=== PATIENT | male | born 1940 | race Caucasian/White ===

== ENCOUNTER → 2017-09-09 05:00 | Outpatient (REF) | payer MEDICARE, OTHER, SELFPAY ==
[2017-09-09 09:37] LABS: Hematocrit 38.9 % (40-54); Hemoglobin 13.3 g/dl (13.0-16.5); Mean Corp Hgb Conc 34.2 g/gl (32-36); Mean Corpuscular Hgb 34.7 pg (27.0-32.0); Mean Corpuscular Volume 101.6 fL (80-94); Mean Platelet Vol. 9.6 fl (6.2-12.0); Platelet Count 158 K/mm3 (150-450); RBC Distribution Width CV 12.2 % (11.6-14.6); RBC Distribution Width SD 45.2 fl (35.1-43.9); Red Blood Count 3.83 M/mm3 (4.6-6.2); White Blood Count 7.2 K/mm3 (4.4-11.0)
[2017-09-09 09:38] LABS: Scan Indicated on CBC? Y/N NO
[2017-09-09 09:54] LABS: Anion Gap 10 (5-15); BUN 22 mg/dL (7-18); BUN/Creat Ratio 27.7 RATIO (10-20); Calcium,Total 8.7 mg/dL (8.5-10.1); Chloride 109 mmol/L (98-107); EST Glomerular Filtration Rate 100 mL/min (>60); Est Glom Filt Rate - Afr Amer 122 mL/min (>60); Glucose 96 mg/dL (70-110); Potassium 3.9 mmol/L (3.5-5.1); Sodium Level 141 mmol/L (136-145)
== END ==
LOC: OLS.WHLTSB 05:00
PROVIDERS: Visit Provider Family Medicine
DX: D64.9 Anemia, unspecified (principal)
CPT/HCPCS: 36415; 80048; 85027

== ENCOUNTER → 2017-12-06 05:00 | Outpatient (REF) | payer MEDICARE, OTHER, SELFPAY ==
[2017-12-06 07:42] LABS: Hematocrit 37.9 % (40-54); Hemoglobin 12.8 g/dl (13.0-16.5); Mean Corp Hgb Conc 33.8 g/gl (32-36); Mean Corpuscular Hgb 34.6 pg (27.0-32.0); Mean Corpuscular Volume 102.4 fL (80-94); Mean Platelet Vol. 9.5 fl (6.2-12.0); Platelet Count 177 K/mm3 (150-450); RBC Distribution Width SD 47.8 fl (35.1-43.9); White Blood Count 6.6 K/mm3 (4.4-11.0)
[2017-12-06 07:46] LABS: Scan Indicated on CBC? Y/N NO
[2017-12-06 07:53] LABS: Anion Gap 7 (5-15); BUN 27 mg/dL (7-18); BUN/Creat Ratio 24.8 RATIO (10-20); Calcium,Total 8.6 mg/dL (8.5-10.1); Chloride 110 mmol/L (98-107); Creatinine, Serum 1.09 mg/dL (0.70-1.30); EST Glomerular Filtration Rate 70 mL/min (>60); Est Glom Filt Rate - Afr Amer 84 mL/min (>60); Glucose 90 mg/dL (74-106); Potassium 3.6 mmol/L (3.5-5.1); Sodium Level 144 mmol/L (136-145)
== END ==
LOC: OLS.WHLTSB 05:00
PROVIDERS: Visit Provider Family Medicine
DX: D64.9 Anemia, unspecified (principal); E87.6 Hypokalemia
CPT/HCPCS: 36415; 80048; 85027

== ENCOUNTER → 2018-05-28 05:00 | Outpatient (REF) | payer SELFPAY ==
[2018-05-28 07:49] LABS: PSA,Total- Diagnostic 0.44 ng/mL (0.0-4.0)
== END ==
LOC: OLS.WHLTSB 05:00
DX: Z85.46 Personal history of malignant neoplasm of prostate (principal)
CPT/HCPCS: 36415; 84153

== ENCOUNTER → 2018-06-09 04:00 | Outpatient (REF) | payer MEDICARE, OTHER, SELFPAY ==
[2018-06-09 09:01] LABS: Hematocrit 39.8 % (40-54); Hemoglobin 13.6 g/dl (13.0-16.5); Mean Corp Hgb Conc 34.2 g/gl (32-36); Mean Corpuscular Hgb 35.4 pg (27.0-32.0); Mean Corpuscular Volume 103.6 fL (80-94); Mean Platelet Vol. 9.5 fl (6.2-12.0); Platelet Count 172 K/mm3 (150-450); RBC Distribution Width CV 12.7 % (11.6-14.6); RBC Distribution Width SD 47.6 fl (35.1-43.9); Red Blood Count 3.84 M/mm3 (4.6-6.2); Scan Indicated on CBC? Y/N NO; White Blood Count 6.1 K/mm3 (4.4-11.0)
[2018-06-09 09:14] LABS: Anion Gap 8 (5-15); BUN 21 mg/dL (7-18); BUN/Creat Ratio 24.5 RATIO (10-20); Calcium,Total 8.8 mg/dL (8.5-10.1); Chloride 111 mmol/L (98-107); Creatinine, Serum 0.86 mg/dL (0.70-1.30); EST Glomerular Filtration Rate 92 mL/min (>60); Est Glom Filt Rate - Afr Amer 111 mL/min (>60); Glucose 95 mg/dL (74-106); PSA,Total- Diagnostic 0.41 ng/mL (0.0-4.0); Potassium 4.2 mmol/L (3.5-5.1); Sodium Level 143 mmol/L (136-145)
== END ==
LOC: OLS.WHLTSB 04:00
PROVIDERS: Visit Provider Family Medicine
DX: D64.9 Anemia, unspecified (principal); Z85.46 Personal history of malignant neoplasm of prostate; E87.6 Hypokalemia
CPT/HCPCS: 36415; 80048; 84153; 85027

== ENCOUNTER → 2018-12-16 07:30 | Outpatient (REF) | payer MEDICARE, OTHER, SELFPAY ==
[2018-12-16 08:12] LABS: Absolute Neutrophil Count 3.4 X10^3/uL (2.0-7.7); Basophil# 0.04 X10^3/uL; Basophil% 0.6 % (0-1); Eosinophil# 0.49 X10^3/uL; Eosinophils% 7.9 % (0-5); Hematocrit 38.7 % (40-54); Hemoglobin 12.8 g/dl (13.0-16.5); Lymphocyte % 29.2 % (19-41); Mean Corp Hgb Conc 33.1 g/gl (32-36); Mean Corpuscular Hgb 33.8 pg (27.0-32.0); Mean Corpuscular Volume 102.1 fL (80-94); Mean Platelet Vol. 9.4 fl (6.2-12.0); Monocyte# 0.38 X10^3/uL; Monocyte% 6.2 % (0-10); Neutrophil # 3.43 X10^3/uL (2.7-7.7); Neutrophil % 55.6 % (47-70); Platelet Count 188 K/mm3 (150-450); RBC Distribution Width CV 13.4 % (11.6-14.6); RBC Distribution Width SD 50.5 fl (35.1-43.9); Red Blood Count 3.79 M/mm3 (4.6-6.2); White Blood Count 6.2 K/mm3 (4.4-11.0)
[2018-12-16 08:33] LABS: Valproic Acid (Depakene) Level 11 ug/mL (50-100)
[2018-12-16 08:37] LABS: International Normalized Ratio 1.1; POSITIVE COUNT NO; POSITIVE DIFFERENTIAL NO; POSITIVE MORPHOLOGY NO; Prothrombin Time (Protime)PT. 13.6 SECONDS (11.7-14.9)
[2018-12-16 08:45] LABS: AST(SGOT) 19 U/L (15-37); Alanine Aminotransfer ALT/SGPT 8 U/L (16-61); Albumin, Serum 3.7 g/dL (3.2-5.0); Alkaline Phosphatase 118 U/L (45-117); Bilirubin, Direct 0.12 mg/dL (0.00-0.30); Globulin 3.7 g/dL (2.2-4.2); Protein, Total 7.4 g/dL (6.4-8.2)
== END ==
LOC: OLS.WHLTSB 07:30
PROVIDERS: Visit Provider Family Medicine
DX: R53.83 Other fatigue (principal); F48.2 Pseudobulbar affect; M62.81 Muscle weakness (generalized); G20 Parkinson's disease; Z79.899 Other long term (current) drug therapy
CPT/HCPCS: 36415; 80076; 80164; 85025; 85610

== ENCOUNTER → 2019-01-07 | Outpatient (REF) | payer MEDICARE, OTHER, SELFPAY | END | disposition home or self-care (01) | LOC: OLS.WHLTSB 02:00 | PROVIDERS: Visit Provider Family Medicine | DX: J18.9 Pneumonia, unspecified organism (principal) | CPT/HCPCS: 87449 ==

== ENCOUNTER 2019-02-02 13:02 | Emergency (ER) | payer MEDICARE, OTHER, SELFPAY ==
[2019-02-02 13:06] VITALS: BP 136/86; PULSE 102; RESP 20; TEMP 36.8; O2SAT 94; BMI 30.4
--- NOTE | 2019-02-02 13:33 | EKG12_ITS ---
Test Reason : PAIN OTHER Blood Pressure : / mmHG Vent. Rate : 109 BPM Atrial Rate : 109 BPM P-R Int : 182 ms QRS Dur : 092 ms QT Int : 334 ms P-R-T Axes : 053 -03 022 degrees QTc Int : 449 ms Somatic Motion Artifact Sinus tachycardia Poor R-wave Progression Confirmed by PANCHO WIN, DWAYNE ([id number]), image editor ALLI CAMPOS ([id number]) on 02/04/2019 10:57:02 AM Referred By: LAURENCE Confirmed By:DWAYNE DELEON MD
--- NOTE | 2019-02-02 13:33 | RAD_ITS ---
STUDY: X-RAY CHEST REASON FOR EXAM: Male, 79 years old. Chest pain. TECHNIQUE: Single AP portable view of the chest. COMPARISON: Comparison is made with prior study dated January 17, 2017. FINDINGS: Limited inspiratory effort. Increased markings at the lung bases suggest some bibasilar atelectasis and/or infiltrates. Blunting of both costo phrenic angles. There is mild cardiac enlargement. Normal mediastinum and gil. Normal visualized pulmonary arteries. There is atherosclerotic tortuosity of the aortic arch and descending thoracic aorta. There are diffuse degenerative changes of the visualized thoracic spine. Normal visualized ribs, clavicles, and shoulders. There is no demonstrated abnormality of the visualized soft tissue structures of the upper abdomen. RAD/Chest 1 View (Portable) IMPRESSION: Findings suggest bibasilar atelectasis and/or infiltrates with blunting of both cost phrenic angles. Electronically Signed: Polo Talbert, at 13:59 EDT , Service support ,
[2019-02-02] MEDS: Ondansetron 4 MG/2 ML Vial IV (13:48)
[2019-02-02] MEDS: fentaNYL 100 MCG/2 ML Ampul 25 MCG IV ×2 (13:48→14:36)
[2019-02-02] MEDS: 0.9% Normal Saline 1,000 ML 15 ML IV (13:48)
[2019-02-02 13:59] LABS: Absolute Lymphocyte Count 1.01 X10^3/ul (0.83-4.51); Absolute Neutrophil Count 8.2 X10^3/uL (2.0-7.7); Basophil# 0.01 X10^3/uL; Basophil% 0.1 % (0-1); Eosinophil# 0.17 X10^3/uL; Eosinophils% 1.7 % (0-5); Hematocrit 41.1 % (40-54); Hemoglobin 13.7 g/dl (13.0-16.5); Lymphocyte # 1.01 X10^3/ul (4.0); Lymphocyte % 10.2 % (19-41); Mean Corp Hgb Conc 33.3 g/gl (32-36); Mean Corpuscular Hgb 34.2 pg (27.0-32.0); Mean Corpuscular Volume 102.5 fL (80-94); Mean Platelet Vol. 9.1 fl (6.2-12.0); Monocyte# 0.45 X10^3/uL; Monocyte% 4.6 % (0-10); Neutrophil # 8.18 X10^3/uL (2.7-7.7); POSITIVE COUNT NO; POSITIVE DIFFERENTIAL NO; POSITIVE MORPHOLOGY NO; Platelet Count 149 K/mm3 (150-450); RBC Distribution Width SD 48.1 fl (35.1-43.9); Red Blood Count 4.01 M/mm3 (4.6-6.2); White Blood Count 9.9 K/mm3 (4.4-11.0)
[2019-02-02 14:15] LABS: AST(SGOT) 15 U/L (15-37); Alanine Aminotransfer ALT/SGPT < 6 U/L (16-61); Albumin, Serum 3.6 g/dL (3.2-5.0); Alkaline Phosphatase 124 U/L (45-117); Anion Gap 6 (5-15); BUN 20 mg/dL (7-18); BUN/Creat Ratio 22.5 RATIO (10-20); Bilirubin, Direct 0.15 mg/dL (0.00-0.30); Calcium,Total 8.5 mg/dL (8.5-10.1); Chloride 106 mmol/L (98-107); Creatinine, Serum 0.89 mg/dL (0.70-1.30); EST Glomerular Filtration Rate 88 mL/min (>60); Est Glom Filt Rate - Afr Amer 107 mL/min (>60); Estimated Creatinine Clearance 57.28 ml/min; Globulin 4.5 g/dL (2.2-4.2); Glucose 114 mg/dL (74-106); Lipase 90 U/L (73-393); Potassium 3.8 mmol/L (3.5-5.1); Protein, Total 8.1 g/dL (6.4-8.2); Sodium Level 141 mmol/L (136-145)
--- NOTE | 2019-02-02 14:29 | CT_ITS ---
STUDY: CT CHEST WITHOUT CONTRAST REASON FOR EXAM: Male, 79 years old. Right lower rib pain. RADIATION DOSAGE (If Supplied By Facility): CTDIvol = ( 19.11 ) mGy, DLP = ( 702.08 ) mGycm TECHNIQUE: Transaxial imaging was performed without the administration of intravenous contrast material. Multiplanar coronal and sagittal images were reformatted. Individualized dose optimization techniques were used for this CT. COMPARISON: Comparison is made with prior study dated September 03, 2015. FINDINGS: There are small bilateral pleural effusions right greater than left with bibasilar infiltration and/or atelectasis superimposed on scarring. Pleural-based soft tissue density seen in the posterior aspect of the right middle lobe abutting the lateral pleural surface. Follow-up is recommended. There is mild cardiac enlargement. There are multiple small lymph nodes within the mediastinum, which are normal in size and morphology most compatible with reactive lymph hyperplasia. Normal hilar regions. Normal unenhanced pulmonary arteries. Normal aorta arch and descending thoracic aorta. There are multi-level degenerative changes of the thoracic spine. 1.9 cm x 3.6 cm cyst in the left lobe of the liver. Small gallstones. CT/Chest without Contrast IMPRESSION: Small bilateral effusions right greater than left with underlying infiltration worse on the right side. Focal consolidation and/or mass is seen along the posterior aspect of the right middle lobe. This abuts the pleural surface. Follow-up is recommended. Electronically Signed: Polo Talbert, at 15:46 EDT , Service support ,
[2019-02-02 15:09] VITALS: BP 134/84; PULSE 117; RESP 29; O2SAT 94
--- NOTE | 2019-02-02 15:44 | ED.VISSUMM ---
- ER Visit Summary Date of Service: 02/02/19 Chief Complaint: Right rib pain History of Present Illness: The patient is a 79 M with history of Parkinson's and prostate cancer. He was at a local ECF. He reached for something and had sudden pain to his right lower ribs. He was given oxycodone without relief and sent in for further evaluation. Physical Examination: Vital signs significant for heart rate of 102. Pulse ox is 94% on room air. He is on 2 L nasal cannula at the time of my examination. Patient is lying in bed. He is alert but moaning intermittently. He has fine tremor noted consistent with Parkinson's. Heart is regular rate and rhythm. Lung sounds are present bilaterally. He has reproducible tenderness of the right lower ribs. No crepitus noted. Abdomen is soft with no focal tenderness. Test Results: EKG is sinus tach at 109 with no acute ischemia. Portable chest x-ray shows bibasilar atelectasis and/or infiltrates with blunting of both costophrenic angles. CBC significant only for platelet count of 149,000. Chemistry studies reveal glucose of 114 and BUN 20, otherwise values normal. LFTs significant only for alk phos of 124. Lipase normal. CT of the chest reveals small bilateral pleural effusions right greater than left with underlying infiltrate, worse on the right. Focal consolidation or masses noted on the posterior right middle lobe. Emergency Department Course and Treatment: Patient had received oxycodone prior to arrival. He was given fentanyl 25 mcg x 2. Pain would be controlled 4., Then it would seem as if he started developing spasm and pain would worsen again. He is breathing very shallow and tachypneic secondary to the pain. Pain is reproducible over the chest wall do not feel that this represents a pulmonary embolism. Patient is currently on hospice care and hospice nurse is present with the patient at bedside. He will be admitted to the inpatient unit for better pain control. We will treat him with Levaquin for his pneumonia. Treatment Plan: [] Disposition: Discharge to hospice inpatient unit Impression: 1. Right lower lobe infiltrate 2. Right chest contusion with spasm This note was generated with [employer] dictation software. It may contain incorrect words, spelling, and punctuation that were not noted in review of the chart prior to signing ED Disposition - Plan for ED Patient: Disposition: Home or Assisted Living Instructions: ED Pneumonia Adult, ED Contusion Rib Prescriptions: Levofloxacin [Levaquin] 750 mg PO DAILY #4 tablet
[2019-02-02 16:08] VITALS: BP 138/78; PULSE 117; RESP 27; O2SAT 96
--- NOTE | 2019-02-02 16:13 | ED.RN ---
per hospice nurse, transport to hospice will not be till 6pm by [facility].
--- NOTE | 2019-02-02 16:18 | ED.RN ---
REPORT GIVEN TO INEZ AT HOSPICE.
[2019-02-02] MEDS: levoFLOXacin 750 MG Tablet PO (16:22)
--- NOTE | 2019-02-02 16:24 | ED.RN ---
GRACIE GRANGER INFORMED THAT PT IS BEING SENT TO HOSPICE.
[2019-02-02 17:15] VITALS: BP 141/87
== END 2019-02-02 18:17 | disposition home or self-care (01) ==
PROVIDERS: Emergency Provider Emergency Medicine; Family Provider Family Medicine; PCP Family Medicine
DX: R91.8 Other nonspecific abnormal finding of lung field (principal); S20.211A Contusion of right front wall of thorax, initial encounter; M62.838 Other muscle spasm; X58.XXXA Exposure to other specified factors, initial encounter; Y93.9 Activity, unspecified; Y92.9 Unspecified place or not applicable; J18.9 Pneumonia, unspecified organism; J90 Pleural effusion, not elsewhere classified; G20 Parkinson's disease; Z51.5 Encounter for palliative care; Z85.46 Personal history of malignant neoplasm of prostate; Z79.899 Other long term (current) drug therapy
CPT/HCPCS: 71045; 71250; 80048; 80076; 83690; 85025; 93005; 96361; 96374; 96375; 96376; 99285; J7030; A4216; J2405

== ENCOUNTER → 2019-10-14 12:45 | Outpatient (REF) | payer MEDICARE, SELFPAY | LOC: OLS.WHLTSB 12:45 | PROVIDERS: PCP Family Medicine; Visit Provider Family Medicine | DX: R19.7 Diarrhea, unspecified (principal) ==